=== PATIENT | female | born 1975 | race Caucasian/White ===

== ENCOUNTER 2017-12-08 15:32 | Emergency (ER) | payer MEDICAID ==
[2017-12-08] MEDS: DIPHENHYDRAMINE 50 MG INJ IV (17:02)
[2017-12-08] MEDS: METOCLOPRAMIDE 10 MG INJ IV (17:02)
[2017-12-08] MEDS: SOD CHLORIDE 0.9% 1,000 ML IV (17:02)
== END 2017-12-08 18:57 | disposition home or self-care (01) ==
LOC: FTE 15:32
DX: R51 Headache (principal)
CPT/HCPCS: 96374; 96375; 99284-25

== ENCOUNTER 2018-11-08 19:38 | Emergency (ER) | payer MEDICAID ==
[2018-11-08] MEDS: ONDANSETRON (ODT) 4 MG TAB ODT (22:27)
[2018-11-08 22:33] LABS: ABNORMAL IP MESSAGE 1; ADD MAN DIFF? NO; BASOPHIL # 0.1 10^3/ul (0.0-0.1); BASOPHILS % 0.7 % (0.0-2.0); EOSINOPHILS # 0.3 10^3/ul (0.0-0.5); EOSINOPHILS % 3.7 % (0.0-7.0); HEMATOCRIT 31.6 % (37.0-47.0); HEMOGLOBIN 8.7 g/dl (12.0-16.0); LYMPHOCYTES # 2.9 10^3/ul (0.8-2.9); LYMPHOCYTES % 40.3 % (15.0-51.0); MEAN CORPUSCULAR HGB CONC 27.5 g/dl (32.0-37.0); MEAN PLATELET VOLUME 9.3 fl (7.4-10.4); MONOCYTE # 0.6 10^3/ul (0.3-0.9); MONOCYTES % 7.9 % (0.0-11.0); NEUTROPHIL # 3.4 10^3/ul (1.6-7.5); PLATELET COUNT 404 10^3/UL (140-415); RED BLOOD COUNT 4.58 10^6/ul (4.20-5.40); RED CELL DISTRIBUTION WIDTH 17.3 % (11.5-14.5)
[2018-11-08 22:33] LABS: WHITE BLOOD COUNT 7.3 10^3/ul (4.8-10.8)
[2018-11-08 22:43] LABS: POSITIVE DIFF @See below
[2018-11-08 22:51] LABS: ADD UMIC YES; UR ASCORBIC ACID NEGATIVE (NEGATIVE); UR BILIRUBIN (Dip) NEGATIVE (NEGATIVE); UR BLOOD (Dip) NEGATIVE (NEGATIVE); UR BUDDING YEAST FEW /HPF (NONE SEEN); UR CLARITY SLIGHTLY CLOUDY (CLEAR); UR COLOR STRAW (YELLOW); UR GLUCOSE (Dip) 3+ mg/dL (NEGATIVE); UR KETONES (Dip) NEGATIVE (NEGATIVE); UR LEUKOCYTE ESTERASE (Dip) 3+ Leu/ul (NEGATIVE); UR NITRITE (Dip) NEGATIVE (NEGATIVE); UR RBC 8 /HPF (0-5); UR SPECIFIC GRAVITY (Dip) 1.025 (1.003-1.030); UR SQUAMOUS EPITHELIAL CELL FEW /HPF (FEW); UR TOTAL PROTEIN (Dip) NEGATIVE (NEGATIVE); UR UROBILINOGEN (Dip) NEGATIVE (NEGATIVE); UR WBC 160 /HPF (0-5)
[2018-11-08 22:52] LABS: ANION GAP 9 (5-13); BLOOD UREA NITROGEN 14 mg/dl (7-20); CALCIUM 9.4 mg/dl (8.4-10.2); CARBON DIOXIDE 29 mmol/L (21-31); CHLORIDE 101 mmol/L (97-110); CREATININE 0.62 mg/dl (0.44-1.00); Estimated GFR > 60 mL/min (>60); GLUCOSE 319 mg/dl (70-220); POTASSIUM 4.2 mmol/L (3.5-5.1); SODIUM 139 mmol/L (135-144)
[2018-11-08 22:53] LABS: PROTIME 12.3 Sec (11.9-14.9)
[2018-11-08 22:54] LABS: PARTIAL THROMBOPLASTIN TIME 28.5 Sec (23.0-35.0)
== END 2018-11-09 | disposition home or self-care (01) ==
LOC: FTE 11-09
DX: D64.9 Anemia, unspecified (principal); R73.9 Hyperglycemia, unspecified; R55 Syncope and collapse; N30.01 Acute cystitis with hematuria
CPT/HCPCS: 36415; 80048; 81001; 81025; 85025; 85610; 85730; 99283